=== PATIENT | male | born 2000 | race Two or more races ===

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

== ENCOUNTER 2020-02-20 14:59 | Emergency (ER) | payer MEDICAID ==
[~2020-02-20] VITALS: Ht 167.6 cm; Wt 74.8 kg
--- NOTE | 2020-02-20 15:07 | NUR ---
CALLED TO TRIAGE,NO ANSWER
[2020-02-20 15:45] VITALS: BP 140/65
[2020-02-20] MEDS ORDERED: IBUPROFEN 600 MG TABLET PO ONE ×2 (16:30→16:33)
== END 2020-02-20 16:37 | disposition home or self-care (01) ==
LOC: ER 14:59
DX: M54.5 Low back pain (principal); M25.511 Pain in right shoulder; V49.69XA Unspecified car occupant injured in collision with other motor vehicles in traffic accident, initial encounter; Y93.89 Activity, other specified; Y92.413 State road as the place of occurrence of the external cause; Y99.8 Other external cause status

== ENCOUNTER 2021-11-23 18:25 | Emergency (ER) | payer MEDICAID ==
[~2021-11-23] VITALS: Ht 167.6 cm; Wt 68.0 kg
[2021-11-23 18:49] VITALS: BP 136/89
--- NOTE | 2021-11-23 18:55 | NUR ---
ER BED 3 COUGH X 2 WEEKS. NOT RELIEVED BY OTC MEDICATION. DENIES CHEST PAIN. NOT ON RESPIRATORY DISTRESS. CONNECTED TO MONITOR. AWAITING MD GUERRERO
[2021-11-23] MEDS ORDERED: ALBUTEROL FS 2.5 MG/3 ML VIAL.NEB NEB ONE (19:30)
[2021-11-23] MEDS ORDERED: IPRATROPIUM NEB FS 0.5 MG/2.5 ML AMPUL.NEB NEB ONE (19:30)
[2021-11-23] MEDS ORDERED: LORA10TA7 PO (19:37)
[2021-11-23] MEDS ORDERED: BENZ-13 PO (19:37)
[2021-11-23] MEDS ORDERED: ALBU8.5H8 INH (19:37)
[2021-11-23] MEDS ORDERED: ALBUTEROL FS 2.5 MG/3 ML VIAL.NEB ONE (19:47)
[2021-11-23] MEDS ORDERED: IPRATROPIUM NEB FS 0.5 MG/2.5 ML AMPUL.NEB ONE (19:47)
--- NOTE | 2021-11-23 19:50 | NUR ---
RT AT BEDSIDE FOR BREATHING TREATMENT
[2021-11-23] MEDS ORDERED: AMOX500C2 PO (20:58)
[2021-11-23] MEDS ORDERED: AZIT250T13 PO (20:58)
--- NOTE | 2021-11-23 21:07 | NUR ---
Patient discharged to home in stable condition. Written and verbal after care instructions given. Patient verbalizes understanding of instruction.
== END 2021-11-23 21:09 | disposition home or self-care (01) ==
LOC: ER 18:33
DX: J18.9 Pneumonia, unspecified organism (principal); J20.9 Acute bronchitis, unspecified; H11.31 Conjunctival hemorrhage, right eye; J02.9 Acute pharyngitis, unspecified; Z20.822 Contact with and (suspected) exposure to COVID-19; M79.2 Neuralgia and neuritis, unspecified; R03.0 Elevated blood-pressure reading, without diagnosis of hypertension
CPT/HCPCS: 71045; 87426; 94640; 99284; C9803

== ENCOUNTER 2025-03-12 16:46 | Inpatient (IN) | payer MEDICAID ==
[~2025-03-12] VITALS: Ht 167.6 cm; Wt 68.0 kg
[~2025-03-12 16:46] MED LIST: ALBU8.5H8 INH; AMOX500C2 PO; AZIT250T13 PO; BENZ-13 PO; LORA10TA7 PO
[2025-03-12] MEDS: IV NS 0.9% 1,000 ML BAG IV ONE (17:30)
[2025-03-12 17:50] LABS: PLATELET COUNT (AUTO) 179 K/uL (150-450); RED BLOOD CELL COUNT(AUTO) 5.03 MIL/uL (4.5-6.0); RED CELL DISTRIBUTION WIDTH 12.5 % (11.5-15.0); WHITE BLOOD COUNT (AUTO) 12.5 K/uL (4.3-11.0)
[2025-03-12 17:59] LABS: ERYTHROCYTE SEDIMENTATION RATE 9 MM/HR (0-15)
[2025-03-12 18:03] LABS: CALCIUM, SERUM 9.0 mg/dL (8.5-10.1); CREATININE 1.3 mg/dL (0.6-1.3); SODIUM SERUM 132.0 mmol/L (136-145); UREA NITROGEN, BLOOD 18.0 mg/dL (7-18)
[2025-03-12 18:09] LABS: ASPARTATE AMINOTRANSFERASE 25.0 U/L (15-37); TOTAL PROTEIN, SERUM 8.2 g/dL (6.4-8.2)
[2025-03-12] MEDS: BACITRACIN ZINC OINT PACKET 1 EA PACKET TP ONE (18:09)
[2025-03-12] MEDS ORDERED: MORPHINE SULFATE INJ 4 MG/ML DISP.SYRIN ONE (19:43)
[2025-03-12] MEDS: MORPHINE SULFATE INJ 2 MG/ML DISP.SYRIN IV ONE (19:51)
[2025-03-12] MEDS ORDERED: MAG HYDROX/AL HYDROX/SIMETH 30 ML UDC PO PRN (22:00)
[2025-03-12] MEDS ORDERED: HYDROCODONE/APAP 10/325MG TABLET PO PRN (22:00)
[2025-03-12] MEDS ORDERED: HYDROCODONE/APAP 5/325MG TABLET PO PRN (22:00)
[2025-03-12] MEDS ORDERED: ONDANSETRON HCL/PF 4 MG/2 ML VIAL IVP PRN (22:00)
[2025-03-12] MEDS ORDERED: MAGNESIUM HYDROXIDE 30 ML UDC PO PRN (22:00)
[2025-03-12] MEDS: CLOBETASOL 0.05% CREAM 15 GM TUBE TP SCH (22:30)
[2025-03-12] MEDS: DOXYCYCLINE HYCLATE (100 MG) 100 MG TABLET PO SCH (22:39)
[2025-03-12] MEDS: IV NS 0.9% 1,000 ML IV SCH (22:40)
[2025-03-13 04:00] VITALS: BP 125/81; TEMP 98.6
[2025-03-13] MEDS: PANTOPRAZOLE 40 MG TABLET.DR PO SCH (06:36)
[2025-03-13 06:46] LABS: PLATELET COUNT (AUTO) 176 K/uL (150-450); RED BLOOD CELL COUNT(AUTO) 5.01 MIL/uL (4.5-6.0); RED CELL DISTRIBUTION WIDTH 13.1 % (11.5-15.0); WHITE BLOOD COUNT (AUTO) 8.3 K/uL (4.3-11.0)
[2025-03-13 07:07] LABS: CALCIUM, SERUM 9.0 mg/dL (8.5-10.1); CREATININE 0.8 mg/dL (0.6-1.3); PHOSPHORUS 3.0 mg/dL (2.5-4.9); SODIUM SERUM 137.0 mmol/L (136-145); UREA NITROGEN, BLOOD 10.0 mg/dL (7-18)
[2025-03-13 12:00] VITALS: BP 122/75; TEMP 98.2; O2SAT 98
[2025-03-13 16:00] VITALS: BP 138/75; TEMP 98.2; O2SAT 98
[2025-03-13] MEDS: SILVER SULFADIAZINE CREAM 25 GM TUBE MC SCH (16:18)
[2025-03-13 20:00] VITALS: BP 142/80; TEMP 98.4; O2SAT 96
[2025-03-14 04:00] VITALS: BP 127/80; TEMP 98.2; O2SAT 91; O2SAT 97
[2025-03-14 07:59] LABS: PLATELET COUNT (AUTO) 177 K/uL (150-450); RED BLOOD CELL COUNT(AUTO) 4.86 MIL/uL (4.5-6.0); RED CELL DISTRIBUTION WIDTH 13.1 % (11.5-15.0); WHITE BLOOD COUNT (AUTO) 9.9 K/uL (4.3-11.0)
[2025-03-14 08:00] VITALS: BP 123/63; TEMP 97.9; O2SAT 100
[2025-03-14 08:09] LABS: CALCIUM, SERUM 8.5 mg/dL (8.5-10.1); CREATININE 1.0 mg/dL (0.6-1.3); PHOSPHORUS 2.9 mg/dL (2.5-4.9); SODIUM SERUM 142.0 mmol/L (136-145); UREA NITROGEN, BLOOD 14.0 mg/dL (7-18)
[2025-03-14] MEDS ORDERED: DOXY100T2 PO (09:36)
[2025-03-14] MEDS ORDERED: SILV50CR32 MC (09:36)
[2025-03-14] MEDS: ACETAMINOPHEN 325 MG TABLET PO PRN (10:17)
== END 2025-03-14 14:14 | disposition home or self-care (01) | DRG 720 ==
LOC: ER 16:52 → TELE1 21:47 → MEDSG1 22:15
PROVIDERS: ADMIT Nurse Practitioner Acute Care; ATTEND Nurse Practitioner Acute Care
DX: A41.9 Sepsis, unspecified organism (principal); E87.1 Hypo-osmolality and hyponatremia; L12.0 Bullous pemphigoid; F19.10 Other psychoactive substance abuse, uncomplicated; L03.115 Cellulitis of right lower limb; L03.116 Cellulitis of left lower limb; T78.40XA Allergy, unspecified, initial encounter; S70.221A Blister (nonthermal), right hip, initial encounter; S30.820A Blister (nonthermal) of lower back and pelvis, initial encounter; S80.822A Blister (nonthermal), left lower leg, initial encounter; S80.821A Blister (nonthermal), right lower leg, initial encounter; X58.XXXA Exposure to other specified factors, initial encounter; Y93.9 Activity, unspecified; Y92.009 Unspecified place in unspecified non-institutional (private) residence as the place of occurrence of the external cause; R21 Rash and other nonspecific skin eruption
CPT/HCPCS: 36415; 80048-TC; 80053-TC; 83605-TC; 83735-TC; 84100-TC; 85025-TC; 85652-TC; 86140-TC; 86403-TC; 87040-TC; 87070-TC; A4223; A6223; A6253; G0378; J2270; J7030

== ENCOUNTER 2025-07-11 23:04 | Emergency (ER) | payer OTHER ==
[~2025-07-11] VITALS: Ht 167.6 cm; Wt 68.0 kg
[~2025-07-11 23:04] MED LIST changes: -ALBU8.5H8 INH; -AMOX500C2 PO; -AZIT250T13 PO; -BENZ-13 PO; +CEPH-570 PO; +DOXY100T2 PO; -LORA10TA7 PO; +SILV50CR32 MC; +SULF1TAB48 PO
[2025-07-12 00:34] VITALS: BP 129/71; TEMP 98.2; O2SAT 98
== END 2025-07-12 00:34 ==
LOC: ER 23:11
DX: S00.83XA Contusion of other part of head, initial encounter (principal); F17.200 Nicotine dependence, unspecified, uncomplicated; V89.2XXA Person injured in unspecified motor-vehicle accident, traffic, initial encounter; Y93.89 Activity, other specified; Y92.410 Unspecified street and highway as the place of occurrence of the external cause; Y99.9 Unspecified external cause status
CPT/HCPCS: 70450-TC